=== PATIENT | male | born 1980 | race Two or more races ===

== ENCOUNTER 2016-05-14 02:17 | Emergency (ER) | payer SELFPAY ==
[2016-05-14 03:36] LABS: URINE BILIRUBIN NEGATIVE (NEGATIVE); URINE BLOOD NEGATIVE (NEGATIVE); URINE GLUCOSE (UA) NEGATIVE (NEGATIVE); URINE LEUKOCYTE ESTERASE NEGATIVE (NEGATIVE); URINE NITRITE NEGATIVE (NEGATIVE); URINE PROTEIN TRACE (NEGATIVE); URINE UROBILINOGEN NORMAL (0-1 mg/dl)
[2016-05-14 03:38] LABS: URINE APPEARANCE CLEAR; URINE COLOR YELLOW
[2016-05-14] MEDS ORDERED: HYDROCODONE/ACETAMINOPHEN 5/325MG TABLET ONE (04:11)
[2016-05-14] MEDS ORDERED: ONDANSETRON 4 MG ODT TAB ONE (04:11)
== END 2016-05-14 05:00 | disposition home or self-care (01) ==
LOC: ED 02:17
DX: J11.1 Influenza due to unidentified influenza virus with other respiratory manifestations (principal); R30.0 Dysuria; R11.2 Nausea with vomiting, unspecified
CPT/HCPCS: 81003; 87804; 99283 ×2; A9270 ×2